=== PATIENT | female | born 1985 | race Hispanic/Latino ===

== ENCOUNTER 2019-08-16 19:15 | Inpatient (IN) | payer MEDICAID, OTHER, SELFPAY ==
[2019-08-16 21:07] VITALS: BMI 30.2
[2019-08-16] MEDS: Lactated Ringer's 1,000 ML IV SCH (21:20)
[2019-08-16] MEDS ORDERED: Methylergonovine 0.2 MG/ML VIAL IM PRN (21:21)
[2019-08-16] MEDS ORDERED: Ibuprofen 800 MG TAB PO PRN (21:21)
[2019-08-16] MEDS ORDERED: Diphenoxylate HCl/Atropine Tablet PO PRN (21:21)
[2019-08-16] MEDS ORDERED: Lidocaine 1% (PF) 30 ML VIAL SC PRN (21:21)
[2019-08-16] MEDS ORDERED: Butorphanol Tartrate 1 MG/ML VIAL SLOW IVP PRN (21:21)
[2019-08-16] MEDS ORDERED: hydrALAZINE 20 MG/ML VIAL SLOW IVP PRN (21:21)
[2019-08-16] MEDS ORDERED: Ondansetron PF 4 MG/2 ML Vial IVP PRN (21:21)
[2019-08-16] MEDS ORDERED: NS / Oxytocin 40 units/1000ml 1,000 ML IV PRN (21:21)
[2019-08-16] MEDS ORDERED: HYDROcodone/Acetaminophen 5/325 mg Tablet PO PRN (21:21)
[2019-08-16] MEDS ORDERED: Misoprostol 200 MCG TAB PR PRN (21:21)
[2019-08-16] MEDS ORDERED: Carboprost 250 MCG/ML AMP IM PRN (21:21)
[2019-08-16] MEDS ORDERED: Promethazine HCl 25 MG/ML VIAL IM PRN (21:21)
[2019-08-16] MEDS ORDERED: NS w/ Oxytocin 10 units 500 ML IV SCH ×2 (21:30)
[2019-08-16] MEDS: Misoprostol 100 MCG TAB PO SCH (21:40)
[2019-08-16 21:57] LABS: Hemoglobin 11.6 g/dL (12.0-16.0); Mean Corpuscular Volume 85.6 fL (78.0-98.0); Mean Platelet Volume 9.2 fL (7.4-10.4); Platelet Count 200 thou/uL (130-400); RBC Distribution Width 13.3 % (11.5-14.5); Red Blood Cell (RBC) Count 3.85 mill/uL (4.20-5.40); White Blood Cell (WBC) Count 7.9 thou/uL (4.8-10.8)
[2019-08-16 22:34] LABS: Syphilis Antibody Nonreactive (Nonreactive); Syphilis Antibody Index 0.05 S/CO (<1.00 Non-Reactive)
[2019-08-16 22:49] LABS: HBSAg Index 0.19 S/CO (0-0.99); Hep B Surf Ag Non-Reactive S/CO (NonReactive)
[2019-08-17] MEDS ORDERED: Fentanyl 4 mcg/Bup 0.1% Cadd 100 ML ONE (01:41)
[2019-08-17] MEDS: Lactated Ringer's 1,000 ML IV SCH (02:16)
[2019-08-17] MEDS ORDERED: Lactated Ringer's 500 ML IV PRN (02:50)
[2019-08-17] MEDS ORDERED: Acetaminophen 325 MG TAB PO PRN (02:50)
[2019-08-17] MEDS ORDERED: Ondansetron PF 4 MG/2 ML Vial IVP PRN ×2 (02:50→06:16)
[2019-08-17] MEDS ORDERED: diphenhydrAMINE 50 MG/ML VIAL IVP PRN (02:50)
[2019-08-17] MEDS ORDERED: Naloxone HCl 0.4 mg/ml Vial IVP PRN ×2 (02:50)
[2019-08-17] MEDS ORDERED: Promethazine HCl 25 MG/ML VIAL IM PRN ×2 (02:50→06:16)
[2019-08-17] MEDS ORDERED: ePHEDrine/0.9% NaCl/PF SYRINGE 50 mg/10 ml SLOW IVP PRN (02:50)
[2019-08-17] MEDS ORDERED: Communication Order-Pharmacy FS SCH (03:00)
[2019-08-17] MEDS ORDERED: Fentanyl 4 mcg/Bupivacaine 0.1% Cassette 100 ML EPIDURAL SCH (03:00)
[2019-08-17] MEDS: Misoprostol 100 MCG TAB PO SCH ×2 (03:01→06:52)
--- NOTE | 2019-08-17 05:53 | PDOC.EVN ---
Event Note - Event Note Event Note: ANDREA Ricci L[facility] Asked to come to L[facility] as standby as patient went to [facility] very quickly. Some FHR decels noted which is why I was called...I arrived from 3SE in 3 minutes. I am at bedside now. COLLEEN in use. Pitocin has been turned off Mat BP 107/[address] Thanh orr. Switching mother to left lateral decubitus
--- NOTE | 2019-08-17 05:57 | PDOC.EVN ---
Event Note - Event Note Event Note: Exam by me now: C/C/+3...putting in lithotomy
--- NOTE | 2019-08-17 06:06 | PDOC.EVN ---
Event Note - Event Note Event Note: Thanh now here...just in time for delivery: C/C/+5 Went from 3cm to complete under 1 hour Baby with spont cry, good tone...to NICU team in room Delivery by Dr Law at 0605/ Please see Dr Law note
[2019-08-17] MEDS ORDERED: Lanolin Ointment 7 GM TUBE TOP PRN (06:16)
[2019-08-17] MEDS ORDERED: hydrALAZINE 20 MG/ML VIAL SLOW IVP PRN (06:16)
[2019-08-17] MEDS ORDERED: Bisacodyl 10 MG SUPP PR PRN (06:16)
[2019-08-17] MEDS ORDERED: Milk Of Magnesia 30 ML UDCUP PO PRN (06:16)
[2019-08-17] MEDS ORDERED: Adacel (T-DAP) 0.5 ML SYRINGE IM ONE (06:16)
[2019-08-17] MEDS ORDERED: HYDROcodone/Acetaminophen 5/325 mg Tablet PO PRN ×2 (06:16)
[2019-08-17] MEDS ORDERED: diphenhydrAMINE 25 MG CAP PO PRN (06:16)
[2019-08-17] MEDS ORDERED: NS / Oxytocin 40 units/1000ml 1,000 ML IV SCH (06:30)
[2019-08-17 08:28] LABS: Actual Bicarbonate (HCO3a) 20.1 mEq/L (22-28); Actual Bicarbonate (HCO3v) 19 mEq/L (22-28); Analyzer IN Cardio OR; Base Excess -10.8 mEq/L (-2.0 to +3.0); Base Excess (BEa) -11.5 mEq/L (-2.0 to +3.0)
[2019-08-17 08:29] LABS: pH (Cord, venous) 7.12 (7.32-7.43)
[2019-08-17] MEDS: Ferrous Sulfate 325 MG TAB PO SCH ×2 (11:26→16:59)
[2019-08-17] MEDS: Docusate Calcium (SURFAK) 240 MG CAP PO SCH ×2 (11:30→21:08)
[2019-08-17] MEDS: Prenatal Vitamin 1 TAB PO SCH (11:30)
[2019-08-17] MEDS: Ibuprofen 800 MG TAB PO SCH ×2 (14:08→21:08)
[2019-08-18 03:22] LABS: Hemoglobin 10.7 g/dL (12.0-16.0); Mean Corpuscular HGB CONC 34.3 g/dL (32.0-36.0); Mean Corpuscular Hemoglobin 29.6 pg (27.0-31.0); Mean Corpuscular Volume 86.3 fL (78.0-98.0); Mean Platelet Volume 8.6 fL (7.4-10.4); Platelet Count 170 thou/uL (130-400); RBC Distribution Width 13.3 % (11.5-14.5); Red Blood Cell (RBC) Count 3.61 mill/uL (4.20-5.40); White Blood Cell (WBC) Count 9.6 thou/uL (4.8-10.8)
[2019-08-18] MEDS: Ibuprofen 800 MG TAB PO SCH (05:07)
[2019-08-18 07:58] VITALS: BP 115/67; TEMP 98
[2019-08-18] MEDS: Ferrous Sulfate 325 MG TAB PO SCH (08:29)
[2019-08-18] MEDS: Docusate Calcium (SURFAK) 240 MG CAP PO SCH (09:00)
[2019-08-18] MEDS: Prenatal Vitamin 1 TAB PO SCH (09:00)
== END 2019-08-18 12:25 | disposition home or self-care (01) | DRG 807 ==
LOC: L&D 20:37 → 3SW 08-17 09:35
PROVIDERS: ADMIT Family Medicine; ATTEND Family Medicine
PROC: 10E0XZZ Delivery of Products of Conception, External Approach (ICD-10-PCS; principal; 2019-08-17)
PROC: 10907ZC Drainage of Amniotic Fluid, Therapeutic from Products of Conception, Via Natural or Artificial Opening (ICD-10-PCS; 2019-08-17)
PROC: 3E02340 Introduction of Influenza Vaccine into Muscle, Percutaneous Approach (ICD-10-PCS; 2019-08-17)
PROC: 3E033VJ Introduction of Other Hormone into Peripheral Vein, Percutaneous Approach (ICD-10-PCS; 2019-08-17)
DX: O69.81X0 Labor and delivery complicated by cord around neck, without compression, not applicable or unspecified (principal); Z37.0 Single live birth; O76 Abnormality in fetal heart rate and rhythm complicating labor and delivery; Z3A.39 39 weeks gestation of pregnancy; Z23 Encounter for immunization
CPT/HCPCS: 36415; 51702; 82805; 85027; 86780; 86850; 86900; 86901; 87340; J2590

== ENCOUNTER 2020-08-09 14:42 | Outpatient (CLI) | payer OTHER ==
--- NOTE | 2020-08-09 16:06 | ULT ---
Obstetric sonogram HISTORY: evaluation. FINDINGS: Single intrauterine gestation in cephalic presentation. Cervix closed and estimated at 3.2 cm. Grade 0 placenta is posterior. No gross intracranial abnormalities are evident. Four-chamber heart mo tion at 158 bpm. OWEN 12.2. Three-vessel cord shows a normal insertion. spine and kidneys are intact as visualized. Measurements are as follows: Biparietal diameter 32 weeks 1 day Head circumference 32 weeks 3 days Abdominal circumference 31 weeks 6 days Femur length 32 weeks 1 day Estimated date of delivery based on sonogram 10/03/2020. IMPRESSION : Single viable intrauterine gestation estimated gestational age 32 weeks 1 day. No abnormalities are d emonstrated.
== END 2020-08-09 14:43 | disposition home or self-care (01) ==
LOC: SCSULT 14:42
PROVIDERS: ATTEND Nurse Practitioner
DX: O09.93 Supervision of high risk pregnancy, unspecified, third trimester (principal); Z3A.32 32 weeks gestation of pregnancy
CPT/HCPCS: 76805

== ENCOUNTER 2020-09-24 07:52 | Emergency (ER) | payer OTHER | END 2020-09-24 08:22 | disposition short-term general hospital (02) | LOC: ERS 07:52 → 3SW 11:22 → UNDOADMIN 11:22 | DX: O80 Encounter for full-term uncomplicated delivery (principal); Z37.0 Single live birth; Z3A.39 39 weeks gestation of pregnancy | CPT/HCPCS: 99284 ==

== ENCOUNTER 2020-09-24 08:24 | Inpatient (IN) | payer OTHER, SELFPAY ==
[2020-09-24] MEDS: NS / Oxytocin 40 units/1000ml 1,000 ML IV SCH ×2 (08:24→10:56)
[2020-09-24] MEDS ORDERED: Ondansetron PF 4 MG/2 ML Vial IVP PRN (08:40)
[2020-09-24] MEDS ORDERED: hydrALAZINE 20 MG/ML VIAL SLOW IVP PRN ×2 (08:40)
[2020-09-24] MEDS ORDERED: Bisacodyl 10 MG SUPP PR PRN (08:40)
[2020-09-24] MEDS ORDERED: Milk Of Magnesia 30 ML UDCUP PO PRN (08:40)
[2020-09-24] MEDS ORDERED: Lanolin Ointment 7 GM TUBE TOP PRN (08:40)
[2020-09-24 08:49] VITALS: BMI 29.6
[2020-09-24] MEDS: HYDROcodone/Acetaminophen 5/325 mg Tablet PO PRN ×2 (08:55→17:10)
[2020-09-24] MEDS ORDERED: FLU VACC QS2020-21(6MOS UP)/PF 60 MCG/0.5 ML SYRINGE IM ONE (09:00)
[2020-09-24 10:20] LABS: Hemoglobin 11.5 g/dL (12.0-16.0); Mean Corpuscular HGB CONC 33.9 g/dL (32.0-36.0); Mean Corpuscular Hemoglobin 28.3 pg (27.0-31.0); Mean Corpuscular Volume 83.5 fL (78.0-98.0); Mean Platelet Volume 8.7 fL (7.4-10.4); Platelet Count 237 thou/uL (130-400); RBC Distribution Width 14.9 % (11.5-14.5); Red Blood Cell (RBC) Count 4.07 mill/uL (4.20-5.40); White Blood Cell (WBC) Count 10.5 thou/uL (4.8-10.8)
[2020-09-24] MEDS: Docusate Calcium (SURFAK) 240 MG CAP PO SCH ×2 (10:55→21:47)
[2020-09-24 11:01] LABS: HBSAg Index 0.12 S/CO (0-0.99); Hep B Surf Ag Non-Reactive S/CO (NonReactive); Syphilis Antibody Nonreactive (Nonreactive); Syphilis Antibody Index 0.03 S/CO (<1.00 Non-Reactive)
[2020-09-24] MEDS: Ibuprofen 800 MG TAB PO SCH ×2 (14:18→21:46)
[2020-09-24] MEDS: Ferrous Sulfate 325 MG TAB PO SCH (14:27)
[2020-09-25] MEDS: Ibuprofen 800 MG TAB PO SCH (05:29)
[2020-09-25 07:44] LABS: Hemoglobin 9.6 g/dL (12.0-16.0)
[2020-09-25 08:23] VITALS: BP 108/74; TEMP 98.3
[2020-09-25] MEDS: Docusate Calcium (SURFAK) 240 MG CAP PO SCH (08:25)
[2020-09-25] MEDS: Ferrous Sulfate 325 MG TAB PO SCH (08:25)
[2020-09-25] MEDS ORDERED: Adacel (T-DAP) 0.5 ML SYRINGE IM ONE (08:40)
[2020-09-25 10:55] LABS: SARS-CoV-2 MS2 Positive; SARS-CoV-2 N Gene Negative; SARS-CoV-2 S Gene Negative; SARS-CoV-2 by NAA Not Detected (NotDetected); SARS-CoV-2 orf1ab Negative
--- NOTE | 2020-09-25 14:17 | DN ---
DATE OF PROCEDURE: 09/24/2020 PRIMARY OB: Dr. Narayan Law. The patient is a 35-year-old G7, P6 female, who presented to the emergency room after delivering in the car a female estimated at 0751 hours by term spontaneous vaginal delivery. The patient arrives to Labor and Delivery at about 8:10 a.m., at which time she was seen by myself. Placenta was still undelivered. Estimated gestational age was 38 weeks and 3 days. Apgars unavailable. weight 3040 g. Placenta delivered spontaneously followed by Pitocin infusion. Evaluation showed no lacerations with a quantitative blood loss about [address] Bonilla is the delivering physician for placenta and evaluation. There were no complications. Counts were correct. CONDITION: Mother and baby were stable in the room in the immediate . Job ID: [id number]
== END 2020-09-25 12:49 | disposition home or self-care (01) | DRG 807 ==
LOC: L&D 08:24 → 3SW 11:46
PROVIDERS: ADMIT Family Medicine; ATTEND Family Medicine
PROC: 10E0XZZ Delivery of Products of Conception, External Approach (ICD-10-PCS; principal; 2020-09-24)
PROC: 3E033VJ Introduction of Other Hormone into Peripheral Vein, Percutaneous Approach (ICD-10-PCS; 2020-09-24)
DX: O80 Encounter for full-term uncomplicated delivery (principal); Z37.0 Single live birth; Z3A.38 38 weeks gestation of pregnancy; Z20.828 Contact with and (suspected) exposure to other viral communicable diseases
CPT/HCPCS: 36415; 85014; 85018; 85027; 86780; 86850; 86900; 86901; 87340; 87635; 90471; 90662; 90715; 99285; G0008; U0003